=== PATIENT | male | born 1940 | race Caucasian/White ===

== ENCOUNTER 2022-12-16 07:00 | Outpatient (CLI) | payer MEDICARE, OTHER ==
--- NOTE | 2022-12-16 16:27 | XRAY Report ---
PROCEDURE: Abdomen 2 View X-Ray INDICATIONS: ABDOMINAL BLOATING AND PAIN TECHNIQUE: 2 views of the abdomen were acquired. COMPARISON: None. FINDINGS: Surgical changes and devices: None. Bowel: No pneumoperitoneum. The bowel gas pattern is normal. Stool load within normal limits. Soft tissues: No masses; visualized solid organ contours appear normal in size. No suspicious abdom inal calcifications. Bones: No suspicious bony abnormalities. Convex right and lumbar scoliosis IMPRESSION: No acute abdominal pathology. Reviewed by: Victor Hugo Wren MD on 12/16/2022 3:26 PM AKDT Approved by: Victor Hugo Wren MD on 12/16/2022 3:26 PM AKDT Station ID: [id number]
== END 2022-12-16 23:59 | disposition home or self-care (01) ==
LOC: DI.S 07:00
PROVIDERS: ATTEND Physician Assistant Medical
DX: R14.0 Abdominal distension (gaseous) (principal); R10.9 Unspecified abdominal pain